=== PATIENT | male | born 1965 | race American Indian/Alaskan Native ===

== ENCOUNTER 2017-07-26 08:52 | Emergency (ER) | payer OTHER ==
[2017-07-26 09:12] VITALS: RESP 18
[2017-07-26] MEDS ORDERED: Oxycodone/Acetaminophen 5/325 mg Tab PO STA (09:23)
--- NOTE | 2017-07-26 09:23 | ED PDOC ---
Arrival/HPI - General Chief Complaint: Upper Extremity Problem/Injury Time Seen by Provider: 07/26/17 09:16 Historian: Patient - History of Present Illness Narrative History of Present Illness (Text): 07/26/17 09:17 51 y/o male, no significant pmh, nkda, c/o rt. sided neck pain x 3 days after sleeping on the couch about 3 days ago. Pt. stated he was sleeping on the couch 3 days ago, woke up the following morning with rt. sided neck pain which the pain has not improve with tylenol, no antipyretics taken for the past 12 hours, no numbness or tingling, non-radiating, no headache, no fever or chills, no rash, immunization up to date, no palpitation or chest pain, no change in vision, no other medical or psychological complaints. Past Medical History - Provider Review Nursing Documentation Reviewed: Yes - Infectious Disease Hx of Infectious Diseases: None - Psychiatric Hx Substance Use: No - Anesthesia Hx Anesthesia: No Family/Social History - Physician Review Nursing Documentation Reviewed: Yes Family/Social History: Unknown Family HX Smoking Status: Unknown If Ever Smoked Hx Alcohol Use: Yes Frequency of alcohol use: Socially Hx Substance Use: No Allergies/Home Meds Allergies/Adverse Reactions: Allergies No Known Allergies Allergy (Verified 07/26/17 09:12) Review of Systems - Review of Systems Constitutional: absent: Fatigue, Fevers ENT: absent: Hearing Changes Respiratory: absent: SOB, Cough Cardiovascular: absent: Chest Pain Gastrointestinal: absent: Abdominal Pain, Nausea, Vomiting Musculoskeletal: Neck Pain, Myalgias. absent: Arthralgias, Back Pain, Joint Swelling Skin: absent: Rash, Pruritis Neurological: absent: Headache Psychiatric: absent: Anxiety, Depression Physical Exam Vital Signs Reviewed: Yes Vital Signs Temp Pulse Resp BP Pulse Ox 07/26/17 09:15 98.7 F 07/26/17 09:07 99.4 F 83 18 148/91 H 99 Temperature: Afebrile Blood Pressure: Hypertensive Pulse: Regular Respiratory Rate: Normal Appearance: Positive for: Well-Appearing, Non-Toxic, Uncomfortable Pain Distress: Severe Mental Status: Positive for: Alert and Oriented X 3 - Systems Exam Head: Present: Atraumatic, Normocephalic. No: Tenderness (no temporal artery tendernesss) Pupils: Present: PERRL Extroacular Muscles: Present: EOMI Conjunctiva: Present: Normal Mouth: Present: Moist Mucous Membranes Neck: Present: Normal Range of Motion, Paraspinal Tenderness (+ttp on the rt. paraspinal muscle region with spasm noted), Trachea Midline. No: Meningeal Signs, MIDLINE TENDERNESS, Lymphadenopathy, Bruit Respiratory/Chest: Present: Clear to Auscultation, Good Air Exchange. No: Respiratory Distress, Accessory Muscle Use, Wheezes, Decreased Breath Sounds, Rales, Retracting, Rhonchi, Tachypneic, Tender to Palpation Cardiovascular: Present: Regular Rate and Rhythm, Normal S1, S2. No: Murmurs Abdomen: No: Tenderness, Distention, Peritoneal Signs, Rebound, Guarding Back: Present: Normal Inspection. No: Midline Tenderness, Paraspinal Tenderness , Pain with Leg Raise, Decubitus Ulcer Upper Extremity: Present: Normal Inspection. No: Cyanosis, Edema Lower Extremity: Present: Normal Inspection. No: Edema Neurological: Present: GCS=15, CN II-XII Intact, Speech Normal, Motor Func Grossly Intact, Gait Normal, Memory Normal Skin: Present: Warm, Dry, Normal Color. No: Rashes Psychiatric: Present: Alert, Oriented x 3, Normal Insight, Normal Concentration Medical Decision Making ED Course and Treatment: 07/26/17 09:28 -toradol/flexeril/percocet/lidoderm -cervical xray -clinically there is no signs or symptoms/hpi as this is menegitis -observe and reassess 07/26/17 11:04 -Cervical xray: Slightly limited study demonstrating no acute fractures. Minor multilevel disc degenerative spondylosis with arm mild left-sided foraminal stenosis C5-C6 level -I checked the [facility] report, there is no visible profile noted on this name/date of , no signs of drug abuse -Pt. feels much better, more comfortable, request to be discharged home with out percocet but wants stronger muscle relaxant, advised to return to the ER with any fever, physical exam show no midline tenderness and no signs of spine abscess. -Discharge home with valium, motrin, lidoderm patch, heat compression, follow up with your own pmd and orthopedic within 2 days, return to the ER for any new or worsening signs or symptoms. - RAD Interpretation Radiology Orders: 07/26/17 09:23 CERVICAL SPINE >18YR W/OBLIQUE [RAD] Stat HISTORY: Pain. COMPARISON: No prior FINDINGS: BONES: No evidence of acute compression fractures nor retropulsed fragments. Vertebral bodies exhibit normal stature. There is slight straightening of the normal lumbar lordosis however the vertebral bodies otherwise exhibit normal alignment. Facets normally aligned. DISC SPACES: Disc space heights relatively maintained. Small marginal anterior and tiny posterior osteophytes seen at several levels. There appears be a mild left- sided exit foraminal narrowing the C5-C6 level SOFT TISSUES: Normal. No prevertebral soft tissue swelling. OTHER FINDINGS: None. IMPRESSION: Slightly limited study demonstrating no acute fractures. Minor multilevel disc degenerative spondylosis with arm mild left-sided foraminal stenosis C5-C6 level Mechanical Repair Worker: Radiologist - Medication Orders Current Medication Orders: Discontinued Medications Cyclobenzaprine HCl (Flexeril) 10 mg PO STAT STA Stop: 07/26/17 09:24 Last Admin: 07/26/17 09:35 Dose: 10 mg Ketorolac Tromethamine (Toradol) 60 mg IM STAT STA Stop: 07/26/17 09:24 Last Admin: 07/26/17 09:34 Dose: 60 mg MAR Pain Assessment Document 07/26/17 09:34 EQ (Rec: 07/26/17 09:34 EQ [id number]) Pain Reassessment Is this a pain reassessment? No Sleep Is patient sleeping during reassessment? No Presence of Pain Presence of Pain Yes IM Administration Charges Document 07/26/17 09:34 EQ (Rec: 07/26/17 09:34 EQ [id number]) Charges for Administration # of IM Administrations 1 Lidocaine (Lidoderm) 1 ea TD STAT STA Stop: 07/26/17 09:25 Last Admin: 07/26/17 09:34 Dose: 1 ea MAR Transdermal Patch Site Document 07/26/17 09:34 EQ (Rec: 07/26/17 09:34 EQ [id number]) Transdermal Patch Site Transdermal Patch Site Right Shoulder Oxycodone/Acetaminophen (Percocet 5/325 Mg Tab) 1 tab PO STAT STA Stop: 07/26/17 09:24 Last Admin: 07/26/17 09:34 Dose: 1 tab MAR Pain Assessment Document 07/26/17 09:34 EQ (Rec: 07/26/17 09:34 EQ [id number]) Pain Reassessment Is this a pain reassessment? No Sleep Is patient sleeping during reassessment? No Presence of Pain Presence of Pain Yes - PA / SURGICAL SERVICES COORDINATOR / Resident Statement MD/DO has reviewed & agrees with the documentation as recorded. Disposition/Present on Arrival - Present on Arrival Any Indicators Present on Arrival: No History of DVT/PE: No History of Uncontrolled Diabetes: No Urinary Catheter: No History of Decub. Ulcer: No History Surgical Site Infection Following: None - Disposition Have Diagnosis and Disposition been Completed?: Yes Diagnosis: Cervical paraspinal muscle spasm, Degenerative cervical disc, Neck pain Disposition: HOME/ ROUTINE Disposition Time: 09:30 Patient Plan: Discharge Patient Problems: Current Active Problems Problem Status Onset Cervical paraspinal muscle spasm Acute Condition: IMPROVED Discharge Instructions (ExitCare): Degenerative Disc Disease, Muscle Spasms (DC ) Additional Instructions: -Discharge home with valium, motrin, lidoderm patch, heat compression, follow up with your own pmd and orthopedic within 2 days, return to the ER for any new or worsening signs or symptoms. Prescriptions: diaZEpam [Valium] 5 mg PO TID PRN #12 tab PRN Reason: Other Ibuprofen [Motrin Tab] 600 mg PO QID PRN #30 tab PRN Reason: Other Lidocaine 5% [Lidoderm] 1 patch TOP DAILY PRN #14 patch PRN Reason: Other Referrals: Anjum Pfeiffer MD [Staff Provider] - Follow up with primary Red Vazquez MD [Staff Provider] - Follow up with primary Forms: WORK NOTE
[2017-07-26] MEDS ORDERED: Lidocaine 5% Patch TD STA (09:24)
[2017-07-26 09:28] VITALS: TEMP 98.7
--- NOTE | 2017-07-26 10:05 | RAD ---
PROCEDURE: Cervical Spine Radiographs. . AP lateral open-mouth and both obliques views of the cervical spine performed. Note that the examination is limited the due to partial obscuration of the tip of the odontoid by overlying occiput the open-mouth projection. . R motion artifact partially obscures detail lateral view. HISTORY: Pain. COMPARISON: No prior FINDINGS: BONES: No evidence of acute compression fractures nor retropulsed fragments. Vertebral bodies exhibit normal stature. There is slight straightening of the normal lumbar lordosis however the vertebral bodies otherwise exhibit normal alignment. Facets normally aligned. DISC SPACES: Disc space heights relatively maintained. Small marginal anterior and tiny posterior osteophytes seen at several levels. There appears be a mild left-sided exit foraminal narrowing the C5-C6 level SOFT TISSUES: Normal. No prevertebral soft tissue swelling. OTHER FINDINGS: None. IMPRESSION: Slightly limited study demonstrating no acute fractures. Minor multilevel disc degenerative spondylosis with arm mild left-sided foraminal stenosis C5-C6 level
[2017-07-26 12:07] VITALS: BP 129/76; PULSE 81; O2SAT 100
== END 2017-07-26 11:45 | disposition home or self-care (01) ==
LOC: ED 08:52
DX: M50.322 Other cervical disc degeneration at C5-C6 level (principal); M62.838 Other muscle spasm
CPT/HCPCS: 72050; 96372; 99283; J1885